=== PATIENT | male | born 1980 | race American Indian/Alaskan Native ===

== ENCOUNTER 2018-07-20 07:52 | Inpatient (IN) | payer BC ==
[2018-07-20] MEDS ORDERED: PROVENTIL IH ONE ×2 (09:04→11:16)
[2018-07-20] MEDS ORDERED: ATROVENT IH ONE (09:05)
--- NOTE | 2018-07-20 09:30 | Emergency Department Report ---
HPI - General Chief Complaint: Adult Asthma Time Seen by Provider: 07/20/18 08:55 - HPI HPI: 38 yo AA Reynaldo presents to the ED with the complaint of a possible asthma exacerbation as he has been having a dry cough, SOB, and wheezing over the past two days despite using his nebulizer treatments. He also thinks he could have some low hemoglobin as he has a hx of anemia and feels very fatigued. He has required transfusions in the past. He had a nose bleed this morning but that has since resolved and he denies any other bleeding. Denies tobacco use but does smoke marijuana. No recent travel or sick contacts at home. No PCP. ED Past Medical Hx - Past Medical History Hx Asthma: Yes Additional medical history: anemia with transfusions - Surgical History Past Surgical History?: No - Social History Smoking Status: Never Smoker Substance Use Type: Marijuana - Medications Home Medications: Home Medications Medication Instructions Recorded Confirmed Last Taken Type ALBUTEROL Inhaler (OR & NICU) 2 puff IH QID PRN 07/20/18 07/20/18 Unknown History [Proair] ED Review of Systems ROS: Stated complaint: ASTHMA ATTACKS Other details as noted in HPI Comment: All other systems reviewed and negative Constitutional: denies: chills, fever Eyes: denies: eye pain, vision change ENT: epistaxis. denies: ear pain, throat pain Respiratory: cough, shortness of breath, wheezing Cardiovascular: denies: chest pain, palpitations, edema Gastrointestinal: denies: abdominal pain, vomiting Genitourinary: denies: dysuria, discharge Musculoskeletal: denies: back pain, arthralgia Skin: denies: rash, lesions Neurological: denies: headache, weakness Physical Exam - Physical Exam Vital Signs: Vital Signs 07/20/18 07/20/18 08:39 09:25 Temperature 98.6 F Pulse Rate 99 H Pulse Rate [ 85 Anterior Bilateral Throughout] Respiratory 20 Rate Respiratory 18 Rate [Anterior Bilateral Throughout] Blood Pressure 167/98 O2 Sat by Pulse 99 Oximetry Physical Exam: GENERAL: The patient is well-developed well-nourished. HENT: Normocephalic. Atraumatic. Patient has moist mucous membranes. EYES: Extraocular motions are intact. Pupils equal reactive to light bilaterally. NECK: Supple. Trachea is midline. CHEST/LUNGS: Moderate to severe wheezing. There is tachypnea but no accessory muscle use. A dry cough is heard during examination. There is no respiratory distress noted. HEART/CARDIOVASCULAR: Regular. There is no tachycardia. There is no murmur. ABDOMEN: Abdomen is soft, nontender. Patient has normal bowel sounds. There is no abdominal distention. SKIN: Skin is warm and dry. NEURO: The patient is awake, alert, and oriented. The patient is cooperative. The patient has no focal neurologic deficits. The patient has normal speech. MUSCULOSKELETAL: There is no tenderness or deformity. There is no limitation range of motion. There is no evidence of acute injury. ED Course Vital Signs 07/20/18 07/20/18 08:39 09:25 Temperature 98.6 F Pulse Rate 99 H Pulse Rate [ 85 Anterior Bilateral Throughout] Respiratory 20 Rate Respiratory 18 Rate [Anterior Bilateral Throughout] Blood Pressure 167/98 O2 Sat by Pulse 99 Oximetry - ABG Interpretation Ph: 7.4 PCO2: 33 PO2: 73 Bicarbonate: 20 Interpretation: normal, other (mild hypoxemia) ED Medical Decision Making - Lab Data Result diagrams: 07/20/18 09:08 07/20/18 09:08 - Radiology Data Radiology results: image reviewed interpreted by me: Chest x-ray does not show any acute process. There are no pleural effusions, obvious pneumonia and there is no pneumothorax. - Medical Decision Making Patient presents with a few days of shortness of breath, wheezing and coughing. He has a history of asthma and on examination he has moderate to severe bronchospasm. He has some tachypnea and no accessory muscle use and does not appear in any respiratory distress. However the patient received a total of about 15 mg of albuterol, a dose of Atrovent, Solu-Medrol and magnesium and does not have any improvement in his respiratory status. Patient attempted to ambulate and immediately had worsening of the bronchospasm and increased work of breathing. For this reason the patient will be admitted to the hospital for an asthma exacerbation and was accepted for admission by the hospitalist, Dr. Pichardo. - Differential Diagnosis asthma, COPD, pneumonia, CHF Critical Care Time: No Critical care attestation.: If time is entered above; I have spent that time in minutes in the direct care of this critically ill patient, excluding procedure time. ED Disposition Clinical Impression: Status asthmaticus Qualifiers: Asthma severity: unspecified severity Asthma persistence: unspecified Qualified Code(s): J45.902 - Unspecified asthma with status asthmaticus Hypertension Qualifiers: Hypertension type: essential hypertension Qualified Code(s): I10 - Essential (primary) hypertension Disposition: DC-09 OP ADMIT IP TO THIS HOSP Is pt being admited?: Yes Condition: Fair Time of Disposition: 12:23
[2018-07-20 09:43] LABS: Hematocrit 43.1 % (35.5-45.6); Hemoglobin 14.5 gm/dl (11.8-15.2); Mean Corpuscular HGB Conc 34 % (32-34); Mean Corpuscular Volume 92 fl (84-94); Red Blood Count 4.69 M/mm3 (3.65-5.03); Red Cell Distribution Width 14.1 % (13.2-15.2)
[2018-07-20 09:44] LABS: BUN/Creatinine Ratio 9; Blood Urea Nitrogen 7 mg/dL (9-20); Hemolysis Index 8
--- NOTE | 2018-07-20 09:46 | XRay Report ---
ROUTINE CHEST, TWO VIEWS: HISTORY: Cough, wheezing. The trachea, heart, mediastinal contour, lung mortensen and bony thorax are unremarkable. IMPRESSION: Unremarkable chest x-ray.
[2018-07-20 09:47] LABS: Basophils % (Auto) 0.5 % (0.0-1.8); Eosinophils # (Auto) 0.1 K/mm3 (0.0-0.4); Eosinophils % (Auto) 1.4 % (0.0-4.3); Lymphocytes # (Auto) 1.2 K/mm3 (1.2-5.4); Lymphocytes % (Auto) 17.2 % (13.4-35.0); Monocytes # (Auto) 0.7 K/mm3 (0.0-0.8); Monocytes % (Auto) 9.9 % (0.0-7.3)
[2018-07-20] MEDS ORDERED: DELTASONE PO ONE (10:15)
[2018-07-20] MEDS ORDERED: SOLU-Medrol IV ONE (10:26)
[2018-07-20] MEDS ORDERED: MAGNESIUM SULFATE 2GM/50ML 2 GM/50 ML BAG IV ONE (10:27)
[2018-07-20] MEDS ORDERED: NACL 0.9% 1000 ML 1,000 ML IV ONE (10:27)
[2018-07-20] MEDS ORDERED: SODIUM CHLORIDE FLUSH SYRINGE 10 ML IV PRN (12:56)
[2018-07-20] MEDS ORDERED: MORPHINE IV PRN (12:56)
[2018-07-20] MEDS ORDERED: ZOFRAN IV PRN (12:56)
[2018-07-20] MEDS ORDERED: TYLENOL PO PRN (12:56)
[2018-07-20 13:05] LABS: Platelet Count 115 K/mm3 (140-440)
[2018-07-20] MEDS: DUONEB *Not for PRN Use IH SCH ×2 (14:03→20:41)
[2018-07-20] MEDS ORDERED: DUONEB *Not for PRN Use IH ONE (14:04)
[2018-07-20] MEDS ORDERED: APRESOLINE IV PRN (14:41)
--- NOTE | 2018-07-20 14:51 | History and Physical Report ---
History of Present Illness Date of examination: 07/20/18 Date of admission: 07/20/18 12:23 Chief complaint: Chest tightness and wheezing History of present illness: Mr. Rojo is a 38-year-old -[place] male with history of marijuana abuse and asthma that presented to [facility] ED with complaints of chest tightness, nonproductive cough, SOB, wheezing for the past 2 days. He also complains about having a nosebleed this morning which has spontaneously resolved on its own. Patient states that he used his children's nebulizer treatment but symptoms persisted. Patient has received a blood transfusion in the past and is concerned about his hemoglobin being low. He has been feeling fatigued for the past day. She states that he does not have a primary care physician. He thought he outgrew his asthma and has not been on any maintenance drugs since childhood. Admits to seasonal allergies, and wheezing. Denies fever, chills, hemoptysis, chest pain, and recent sick contact. Past History Past Medical History: other (childhood asthma) Past Surgical History: No surgical history Social history: , lives with family, smoking, other (marijuana abuse) Family history: no significant family history Medications and Allergies Allergies Allergy/AdvReac Type Severity Reaction Status Date / Time No Known Allergies Allergy Verified 07/20/18 07:53 Home Medications Medication Instructions Recorded Confirmed Last Taken Type ALBUTEROL Inhaler (OR & NICU) 2 puff IH QID PRN 07/20/18 07/20/18 Unknown History [Proair] Active Meds: Active Medications Acetaminophen (Tylenol) 650 mg PO Q4H PRN PRN Reason: Pain MILD(1-3)/Fever >100.5/OROURKE Albuterol/Ipratropium (Duoneb *Not For Prn Use*) 1 ampul IH Q6HRT [facility] Last Admin: 07/20/18 14:03 Dose: 1 ampul Documented by: Amlodipine Besylate (Norvasc) 5 mg PO QDAY [facility] Budesonide (Pulmicort) 0.5 mg IH Q12HRT [facility] Hydralazine HCl (Apresoline) 10 mg IV Q4HR PRN PRN Reason: Blood Pressure Methylprednisolone Sodium Succinate (Solu-Medrol) 40 mg IV BID [facility] Morphine Sulfate (Morphine) 2 mg IV Q4H PRN PRN Reason: Pain, Moderate (4-6) Stop: 07/21/18 23:59 Ondansetron HCl (Zofran) 4 mg IV Q8H PRN PRN Reason: Nausea And Vomiting Sodium Chloride (Sodium Chloride Flush Syringe 10 Ml) 10 ml IV BID RICK Sodium Chloride (Sodium Chloride Flush Syringe 10 Ml) 10 ml IV PRN PRN PRN Reason: LINE FLUSH Review of Systems Constitutional: no weight loss, no weight gain, no fever, no chills, no sweats Ears, nose, mouth and throat: epistaxis, no ear pain, no ear discharge, no hoarseness, no sore throat Cardiovascular: shortness of breath, dyspnea on exertion, no chest pain, no orthopnea, no palpitations, no rapid/irregular heart beat Respiratory: cough, shortness of breath, dyspnea on exertion, no cough with sputum, no excessive sputum, no hemoptysis Gastrointestinal: no abdominal pain, no nausea, no vomiting, no diarrhea, no hematemesis Genitourinary Male: no hematuria, no urinary frequency, no urinary hesitancy, no nocturia, no incontinence Rectal: no pain, no incontinence, no itching Musculoskeletal: no shooting arm pain, no shooting leg pain, no leg numbness/tingling, no frequent falls Integumentary: no rash, no pruritis, no redness, no sores Neurological: no paralysis, no weakness, no parathesias, no numbness Psychiatric: no anxiety, no change in sleep habits, no sleep disturbances, no change in libido, no suicidal ideation Endocrine: no polyphagia, no polydipsia, no polyuria, no nocturia Hematologic/Lymphatic: no easy bruising, no easy bleeding Allergic/Immunologic: wheezing, seasonal allergies Exam - Constitutional Vitals: Temp Pulse Resp BP Pulse Ox 98.6 F 114 H 20 146/89 95 07/20/18 08:39 07/20/18 14:13 07/20/18 14:13 07/20/18 14:13 07/20/18 14:13 General appearance: Present: no acute distress, well-nourished - EENT Eyes: Present: PERRL ENT: hearing intact, clear oral mucosa - Neck Neck: Present: supple, normal ROM - Respiratory Respiratory effort: normal Respiratory: bilateral: wheezing (scattered wheeze in throughout) - Cardiovascular Heart rate: 91 (beats per minute) Rhythm: regular (beats per minute) Heart Sounds: Present: S1 & S2. Absent: rub, click - Extremities Extremities: pulses symmetrical, No edema Peripheral Pulses: within normal limits - Abdominal General gastrointestinal: Present: soft, non-tender, non-distended, normal bowel sounds Male genitourinary: Present: deferred - Rectal Rectal Exam: deferred - Integumentary Integumentary: Present: clear, warm, dry - Musculoskeletal Musculoskeletal: gait normal, strength equal bilaterally - Psychiatric Psychiatric: appropriate mood/affect, intact judgment & insight - Neurologic Neurologic: CNII-XII intact, moves all extremities - Allied Health Allied health notes reviewed: nursing Results - Labs CBC & Chem 7: 07/20/18 09:08 07/20/18 09:08 Labs: Laboratory Last Values WBC 7.1 K/mm3 (4.5-11.0) 07/20/18 09:08 RBC 4.69 M/mm3 (3.65-5.03) 07/20/18 09:08 Hgb 14.5 gm/dl (11.8-15.2) 07/20/18 09:08 Hct 43.1 % (35.5-45.6) 07/20/18 09:08 MCV 92 fl (84-94) 07/20/18 09:08 MCH 31 pg (28-32) 07/20/18 09:08 MCHC 34 % (32-34) 07/20/18 09:08 RDW 14.1 % (13.2-15.2) 07/20/18 09:08 Plt Count 115 K/mm3 (140-440) L 07/20/18 09:08 Lymph % (Auto) 17.2 % (13.4-35.0) 07/20/18 09:08 Dundy % (Auto) 9.9 % (0.0-7.3) H 07/20/18 09:08 Eos % (Auto) 1.4 % (0.0-4.3) 07/20/18 09:08 Baso % (Auto) 0.5 % (0.0-1.8) 07/20/18 09:08 Lymph # 1.2 K/mm3 (1.2-5.4) 07/20/18 09:08 Dundy # 0.7 K/mm3 (0.0-0.8) 07/20/18 09:08 Eos # 0.1 K/mm3 (0.0-0.4) 07/20/18 09:08 Baso # 0.0 K/mm3 (0.0-0.1) 07/20/18 09:08 Seg Neutrophils % 71.0 % (40.0-70.0) H 07/20/18 09:08 Seg Neutrophils # 5.0 K/mm3 (1.8-7.7) 07/20/18 09:08 POC ABG pH 7.403 (7.35-7.45) 07/20/18 14:19 POC ABG pCO2 33.5 (35-45) L 07/20/18 14:19 POC ABG pO2 73 (80-105) L 07/20/18 14:19 POC ABG HCO3 20.9 (22-26 mml/L) 07/20/18 14:19 POC ABG Total CO2 22 (23-27mmol/L) 07/20/18 14:19 POC ABG O2 Sat 95 07/20/18 14:19 POC ABG Base Excess -4 ((-2) - (+3)mmol/L) 07/20/18 14:19 FiO2 21 % 07/20/18 14:19 Sodium 138 mmol/L (137-145) 07/20/18 09:08 Potassium 4.3 mmol/L (3.6-5.0) 07/20/18 09:08 Chloride 101.2 mmol/L (98-107) 07/20/18 09:08 Carbon Dioxide 27 mmol/L (22-30) 07/20/18 09:08 Anion Gap 14 mmol/L 07/20/18 09:08 BUN 7 mg/dL (9-20) L 07/20/18 09:08 Creatinine 0.8 mg/dL (0.8-1.5) 07/20/18 09:08 Estimated GFR > 60 ml/min 07/20/18 09:08 BUN/Creatinine Ratio 9 % 07/20/18 09:08 Glucose 92 mg/dL (75-100) 07/20/18 09:08 Calcium 9.0 mg/dL (8.4-10.2) 07/20/18 09:08 Short CBC 04/29/19 Range/Units 09:08 WBC 7.1 (4.5-11.0) K/mm3 Hgb 14.5 (11.8-15.2) gm/dl Hct 43.1 (35.5-45.6) % Plt Count 115 L (140-440) K/mm3 [facility] 07/20/18 09:08 Sodium 138 Potassium 4.3 Chloride 101.2 Carbon Dioxide 27 BUN 7 L Creatinine 0.8 Glucose 92 Calcium 9.0 - Imaging and Cardiology Chest x-ray: report reviewed, image reviewed (IMPRESSION: Unremarkable chest x- ray. ) Assessment and Plan Assessment and plan: Mr. Rojo is a 38-year-old -Swazi male with history of marijuana abuse and asthma that presented to [facility] ED with complaints of chest tightness, nonproductive cough, SOB, wheezing for the past 2 days. He also complains about having a nosebleed this morning which has spontaneously resolved on its own. He will be admitted to medical floor. Asthma exacerbation ABG on admission7.403/33.5/73/20.9 Scheduled Duo Nebs IV SoluMedrol 40mg BID Pulmicort Albuterol prn Start on IV Levaquin 500mg daily for 3days with transition to po for 2 days Consider pulmonary consult if no improvement in symptoms Will need outpatient follow-up with lead bi developer Hypertension Monitor BP Start amlodipine 5 mg daily IV hydralazine when necessary Marijuana abuse Counseled for cessation Hx of Anemia- with transfusion Hgb on admission 14.5 Monitor Hgb DVT PPX On Heparin Advance Directives: No VTE prophylaxis?: Chemical Plan of care discussed with patient/family: Yes
[2018-07-20] MEDS: LEVAQUIN 500MG/100ML 500 MG/100 ML BAG IV SCH (18:08)
[2018-07-20] MEDS: NORVASC PO SCH (18:08)
[2018-07-20] MEDS: PULMICORT IH SCH (20:42)
[2018-07-20] MEDS: HEPARIN SUB-Q SCH (21:40)
[2018-07-20] MEDS: SODIUM CHLORIDE FLUSH SYRINGE 10 ML IV SCH (21:40)
[2018-07-20] MEDS: SOLU-Medrol IV SCH (21:40)
[2018-07-21] MEDS: DUONEB *Not for PRN Use IH SCH ×5 (02:15→19:36)
[2018-07-21 06:05] LABS: Basophils % (Auto) 0.1 % (0.0-1.8); Hematocrit 41.9 % (35.5-45.6); Hemoglobin 14.2 gm/dl (11.8-15.2); Lymphocytes # (Auto) 0.6 K/mm3 (1.2-5.4); Lymphocytes % (Auto) 6.3 % (13.4-35.0); Mean Corpuscular HGB Conc 34 % (32-34); Mean Corpuscular Volume 93 fl (84-94); Monocytes # (Auto) 0.5 K/mm3 (0.0-0.8); Monocytes % (Auto) 5.5 % (0.0-7.3); Red Blood Count 4.52 M/mm3 (3.65-5.03); Red Cell Distribution Width 14.1 % (13.2-15.2)
[2018-07-21 06:10] LABS: Platelet Count 114 K/mm3 (140-440)
[2018-07-21 06:26] LABS: BUN/Creatinine Ratio 16; Blood Urea Nitrogen 8 mg/dL (9-20); Calcium 9.1 mg/dL (8.4-10.2); Hemolysis Index 41
[2018-07-21] MEDS: PULMICORT IH SCH ×3 (08:09→19:36)
[2018-07-21] MEDS: HEPARIN SUB-Q SCH ×2 (11:03→21:46)
[2018-07-21] MEDS: SOLU-Medrol IV SCH ×2 (11:04→21:46)
[2018-07-21] MEDS: LEVAQUIN 500MG/100ML 500 MG/100 ML BAG IV SCH (11:05)
[2018-07-21] MEDS: SODIUM CHLORIDE FLUSH SYRINGE 10 ML IV SCH ×2 (11:06→21:46)
[2018-07-21] MEDS: NORVASC PO SCH (13:36)
[2018-07-22] MEDS: DUONEB *Not for PRN Use IH SCH ×3 (01:21→13:24)
[2018-07-22] MEDS: PULMICORT IH SCH (08:24)
--- NOTE | 2018-07-22 09:40 | Progress Note ---
Assessment and Plan Mr. Rojo is a 38-year-old -Maltese male with history of marijuana abuse and asthma that presented to [facility] ED with complaints of chest tightness, nonproductive cough, SOB, wheezing for the past 2 days. He also complains about having a nosebleed this morning which has spontaneously resolved on its own. He will be admitted to medical floor. Asthma exacerbation ABG on admission7.403/33.5/73/20.9 Scheduled Duo Nebs IV SoluMedrol 40mg BID Pulmicort Albuterol prn Started on IV Levaquin 500mg daily for 3days with transition to po for 2 days Improving Will need outpatient follow-up with athletic equipment custodian Hypertension Monitor BP Start amlodipine 5 mg daily IV hydralazine when necessary Marijuana abuse Counseled for cessation Hx of Anemia- with transfusion Hgb on admission 14.5 Monitor Hgb DVT PPX On Heparin Advance Directives: No VTE prophylaxis?: Chemical Plan of care discussed with patient/family: Yes Subjective Date of service: 07/21/18 Principal diagnosis: Asthma exacerbation Interval history: Still wheezing and coughing Objective - Constitutional Vitals: Vital Signs - 12hr 07/21/18 07/22/18 07/22/18 23:35 01:23 01:34 Temperature 98.3 F Pulse Rate 85 Pulse Rate [ 85 78 Anterior Bilateral Throughout] Respiratory 20 Rate Respiratory 19 18 Rate [Anterior Bilateral Throughout] Blood Pressure 139/95 O2 Sat by Pulse 94 Oximetry 07/22/18 05:15 Temperature 98.2 F Pulse Rate 95 H Pulse Rate [ Anterior Bilateral Throughout] Respiratory 20 Rate Respiratory Rate [Anterior Bilateral Throughout] Blood Pressure 152/95 O2 Sat by Pulse 95 Oximetry General appearance: Present: no acute distress, well-nourished - EENT Eyes: PERRL, EOM intact ENT: hearing intact, clear oral mucosa Ears: bilateral: normal - Neck Neck: supple, normal ROM - Respiratory Respiratory effort: normal Respiratory: bilateral: CTA - Breasts Breasts: deferred - Cardiovascular Heart rate: 76 Rhythm: regular Heart Sounds: Present: S1 & S2. Absent: gallop, rub Extremities: pulses intact, No edema, normal color, Full ROM - Gastrointestinal General gastrointestinal: Present: soft, non-tender, non-distended, normal bowel sounds - Genitourinary Male genitourinary: normal - Integumentary Integumentary: clear, warm, dry - Musculoskeletal Musculoskeletal: 1, strength equal bilaterally - Neurologic Neurologic: moves all extremities - Psychiatric Psychiatric: memory intact, appropriate mood/affect, intact judgment & insight - Labs CBC & Chem 7: 07/21/18 04:40 07/21/18 04:40 - Imaging and cardiology Chest x-ray: report reviewed
--- NOTE | 2018-07-22 09:44 | Discharge Summary ---
Providers - Providers Date of Admission: 07/21/18 12:10 Date of discharge: 07/22/18 Attending physician: LUZ MARIA GAMEZ None Primary care physician: NIKOLAI NEGRETE Hospitalization Condition: Fair Hospital course: Asthma exacerbation ABG on admission7.403/33.5/73/20.9 Scheduled Duo Nebs at home also IV SoluMedrol 40mg BID transition to po prednisone Pulmicort Albuterol MDI prn Improving Will need outpatient follow-up with athletic equipment manager Hypertension Monitor BP Amlodipine 5 mg daily Marijuana abuse Counseled for cessation Hx of Anemia- with transfusion Hgb on admission 14.5 Monitor Hgb DVT PPX On Heparin Advance Directives: No VTE prophylaxis?: Chemical Plan of care discussed with patient/family: Yes Disposition: - TO HOME OR SELFCARE Core Measure Documentation - Palliative Care Palliative Care/ Comfort Measures: Not Applicable - Core Measures Any of the following diagnoses?: none Exam - Constitutional Vitals: Temp Pulse Resp BP Pulse Ox 98.2 F 95 H 20 152/95 95 07/22/18 05:15 07/22/18 05:15 07/22/18 05:15 07/22/18 05:15 07/22/18 05:15 General appearance: Present: no acute distress, well-nourished - EENT Eyes: Present: PERRL ENT: hearing intact, clear oral mucosa - Neck Neck: Present: supple, normal ROM - Respiratory Respiratory effort: normal Respiratory: bilateral: CTA, wheezing - Cardiovascular Heart rate: 78 Rhythm: regular Heart Sounds: Present: S1 & S2. Absent: rub, click - Extremities Extremities: no ischemia, pulses intact, pulses symmetrical, No edema Peripheral Pulses: within normal limits - Abdominal General gastrointestinal: Present: soft, non-tender, non-distended, normal bowel sounds Male genitourinary: Present: normal - Rectal Rectal Exam: deferred - Integumentary Integumentary: Present: clear, warm, dry - Musculoskeletal Musculoskeletal: gait normal, strength equal bilaterally - Psychiatric Psychiatric: appropriate mood/affect, intact judgment & insight - Neurologic Neurologic: CNII-XII intact, moves all extremities - Allied Health Allied health notes reviewed: nursing, case management Plan Activity: no restrictions Diet: low salt Follow up with: NIKOLAI NEGRETE MD [Primary Care Provider] - 3-5 Days
[2018-07-22] MEDS: NORVASC PO SCH (10:00)
[2018-07-22] MEDS: LEVAQUIN 500MG/100ML 500 MG/100 ML BAG IV SCH (10:53)
[2018-07-22] MEDS: SOLU-Medrol IV SCH (10:54)
[2018-07-22] MEDS: HEPARIN SUB-Q SCH (10:55)
[2018-07-22] MEDS: SODIUM CHLORIDE FLUSH SYRINGE 10 ML IV SCH (10:55)
[2018-07-22 13:06] VITALS: BP 145/104
== END 2018-07-22 12:30 | disposition home or self-care (01) | DRG 203 ==
LOC: ED 07:52 → 3A 12:23 → OBSVTOIN 07-21 12:10
PROVIDERS: ADMIT Internal Medicine; ATTEND Internal Medicine
PROC: 4A033R1 Measurement of Arterial Saturation, Peripheral, Percutaneous Approach (ICD-10-PCS; principal; 2018-07-21)
DX: J45.902 Unspecified asthma with status asthmaticus (principal); I10 Essential (primary) hypertension; F12.10 Cannabis abuse, uncomplicated; F17.210 Nicotine dependence, cigarettes, uncomplicated; Z71.6 Tobacco abuse counseling; Z79.51 Long term (current) use of inhaled steroids; Z71.51 Drug abuse counseling and surveillance of drug abuser
CPT/HCPCS: 36415; 36600; 71046; 80048; 82803; 85025; 94640; 99406; G0378; J1644; J1956; J2920; J2930; J3475; J7030

== ENCOUNTER 2018-10-25 18:03 | Emergency (ER) | payer BC ==
[2018-10-25 18:25] VITALS: BP 148/98
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
== END 2018-10-25 19:40 | disposition home or self-care (01) ==
LOC: ED 18:03
DX: M54.6 Pain in thoracic spine (principal); I10 Essential (primary) hypertension; J45.909 Unspecified asthma, uncomplicated; D64.9 Anemia, unspecified; M54.9 Dorsalgia, unspecified; G89.29 Other chronic pain; F12.10 Cannabis abuse, uncomplicated; Z79.899 Other long term (current) drug therapy; V49.49XA Driver injured in collision with other motor vehicles in traffic accident, initial encounter; Y93.89 Activity, other specified; Y92.410 Unspecified street and highway as the place of occurrence of the external cause; Y99.8 Other external cause status
CPT/HCPCS: 72072